=== PATIENT | female | born 1995 | race Caucasian/White ===

== ENCOUNTER 2024-09-17 12:50 | Outpatient (RCR) | payer OTHER, SELFPAY ==
--- NOTE | 2024-09-02 15:30 | PC.NURSE ---
Addendum entered by Vi Carlton RN 09/02/24 18:33: Copy of this note and face sheet faxed to Dr. Acosta's office for their records. Original Note: Baby: Shade Santo ( [birth year]) In- 1445 Out- 1530 Reason for visit: Latch Issues, Weighted Feed Wanted and How to Increase Milk Supply History: Lynne delivered a full term baby boy, Shade Santo, on 07/01/24 @ [facility] and they were released on same day of through what she said was an Early Release Program. She did have to use a nipple shield for the first few weeks due to Shade having a tooth that was removed. She is 10-12 times in 24 hours, average duration is 15-20 mins, feels like he has been snacking lately and feeds haven't been as long. Today he had a longer feeding before seeing and then fed 30 mins at the breast while here. She is wanting to increase her milk supply, currently she pumps 1 time per day, usually after his 1 am feeding, she waits 30 mins and then pumps for 15-20 mins, she get around 2-3oz total. Lynne is using a [employer] Breast pump. She has power pumped before to help her supply but it has been a while since she has done so. She has cut dairy from her diet as there is a possible cow milk allergy for Shade per mother. Lynne also has history of anxiety and depression and is currently taking Buspar and Sertraline daily. History: Per mother infant had an appointment yesterday and had previously been in 80th % for weight, now is 40th %, not much concern but was given Alimentum formula for supplementation if needed, he had a few bottles so far and is doing well with it. Possible cow milk allergy and history of reflux, he is taking Pepcid. He currently has 5-7 wet diapers per day and at least 1 stool per day. Observations: Mother is very calm and relaxed, works very well with her infant and is confident in her . During his feeding, Shade is calm and nursing well, audible swallows, suck to swallow ratio was 2:1, infant is very happy and smiley after his feeding, was not fussy at all except with his diaper change. He had a large void and stool while here. weight: 9lbs 3oz. Lowest weight: unsure Last weight: 12lbs (09/01/24 @ rig superintendent's office) Pre-feed weight: 12lbs 1.6oz Post-feed weight: 12 lbs 3.6 oz. Infant took 55mls in a 30 min session. Plan of Care: Add in 1-2 more breast pumping sessions and continue to feed on demand, at least 10-12 breast feedings in 24 hours. Mother given information about infant daily intake amount, per Pocket Guide, Standard weight gain was 30 ounces per day and to increase weight was 32 ounces per day. Follow up plans: Shade has an appointment for his 4 month check up scheduled but if mother is concerned she may call sooner and schedule a weight check either at the rig superintendent's office or with . RN will follow up with mother on Friday09/04/24 with a phone call to see how they are doing.
--- NOTE | 2024-09-17 11:50 | PC.NURSE ---
In- 1150 Out- 1245 Reason for visit: Desires a weighted feed to check progress since last appointment. History: There are no changes to the patient's history since the last appointment. Lynne has been pumping in the night for additional stimulation. History: Shade has been feeding on demand every 2 hours. Mom has been paying close attention to his feeding cues and keeping him at breast for a longer time if he seems unsatisfied. She will be returning to work on Friday and wants to know how much he is transferring at breast and how much he will need to be fed by bottle when with the caregivers during the day while away from mom. Observations: Baby Shade is happy and alert. Mom works very well with him and latching and positioning are easy for the dyad. Baby was distracted at the beginning of the feeding, pulling off the breast then going back on several times. Discussed with mom that he may have a preference for the faster flowing bottle nipples and waiting for a letdown may seem slow to him. He may also just be interested in his new surroundings while here at the hospital. Mom does notice some off and on during the day, especially when he is alert and active. Mom notes 3 let downs during this feeding. We reviewed responsive feeding and emptying both breasts at feedings so that he gets the higher fat milk at the end of the feed. She incorporates breast compression to assist with let down and milk flow. weight: 9 # 3 Last weight: 12 # 0 Pre-feed weight: 12# 12 (5774g) Post-feed weight: 12# 15 (5863g) Transfer volume: 89ml (3 oz) Plan of Care: Lynne is encouraged and excited that baby was able to transfer 3 oz at this feeding. She thinks that paying closer attention to his feeding cues and satisfaction along with her additional pumping has helped increase his transfer volume at breast. We also used the Pocket Guide for Management to figure his daily required intake of 2.7 oz per feeding if he eats 12x each day. She feels more confident with returning to work knowing how much he needs to eat every day for appropriate weight gain. Follow up plans: Lynne and Shade are doing well and there are no other concerns at this time. Lynne is welcome to come back for another appointment if any issues arise. RN will follow up with her next week to ensure she is still doing well. She will follow up with her orthopedic brace maker as scheduled.
== END 2024-12-01 23:59 | disposition home or self-care (01) ==
LOC: ANHOBOP 12:50
PROVIDERS: Visit Provider Pediatrics
DX: Z39.1 Encounter for care and examination of lactating mother (principal)
CPT/HCPCS: 99202; 99212; G0463